=== PATIENT | female | born 2000 | race Caucasian/White ===

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

== ENCOUNTER 2022-06-25 09:29 | Inpatient (IN) ==
[2022-06-18 11:34] LABS: Basophils # 0.1 10*3/uL (0.0-0.2); Basophils % 0.6 % (0.0-0.8); Eosinophils # 0.1 10*3/uL (0.0-0.87); Eosinophils % 0.9 % (0.00-10.9); Hematocrit 39.6 VOL% (35.7-47.0); Hemoglobin 12.3 GM/DL (12.0-16.0); Immature Granulocytes % 0.2 %; Immature Granulocytes Absolute 0.02 #; Lymphocytes # 1.7 10*3/uL (1.4-4.0); Mean Corpuscular HGB Conc 31.1 GM/DL (32-36); Mean Corpuscular Volume 85.3 FL (87-102); Mean Platelet Volume 10.6 FL (9.6-12.0); Monocytes # 0.7 10*3/uL (0.11-0.8); Monocytes % 9.1 % (1.7-12.7); Neutrophils % 68.2 % (38.7-73.9); Platelet Count 260 T/CUMM (130-400); Red Blood Count 4.64 MC/CUMM (3.8-5.5); Red Cell Distribution Width 14.5 % (9.3-17.3)
[2022-06-18 11:44] LABS: Calcium 8.8 MG/DL (8.5-10.1); Osmolality,Calculated 274.5 MOS/KG (273-304); Potassium 3.9 MMOL/L (3.5-5.1)
[~2022-06-25 09:29] MED LIST: ALVIMOPAN 12 MG CAPSULE ONE; ALVIMOPAN 12 MG CAPSULE PO ONE; LACTATED RINGERS 1,000 ML IV SCH; cefTRIAXone 1,000 MG VIAL ONE; cefTRIAXone 1,000 MG in SODIUM CHLORIDE 0.9% 100 ML IV ONE
[2022-06-25] MEDS ORDERED: FAMOTIDINE 20 MG TABLET PO ONE (10:04)
[2022-06-25] MEDS ORDERED: DIAZEPAM 5 MG TABLET PO ONE (10:04)
[2022-06-25] MEDS ORDERED: propofoL 200 MG/20 ML VIAL IV ONE ×2 (10:06→12:30)
[2022-06-25] MEDS ORDERED: LIDOCAINE 2% 5 ML VIAL ONE (10:06)
[2022-06-25] MEDS ORDERED: ROCURONIUM 50 MG/5 ML VIAL IV ONE (10:06)
[2022-06-25] MEDS ORDERED: MIDAZOLAM 2 MG/2 ML VIAL ONE ×2 (10:07→13:18)
[2022-06-25] MEDS ORDERED: fentaNYL 100 MCG/2 ML VIAL ONE (10:07)
[2022-06-25] MEDS ORDERED: ALBUMIN 25% 25 GM/100 ML VIAL IV ONE (12:55)
[2022-06-25] MEDS ORDERED: KETAMINE 500 MG/10 ML VIAL ONE (13:22)
[2022-06-25] MEDS ORDERED: LACTATED RINGERS 1,000 ML IV ONE (13:27)
[2022-06-25] MEDS ORDERED: SEVOFLURANE 1 UNIT/15 MINUTE INH ONE (15:45)
[2022-06-25] MEDS ORDERED: ceFAZolin 1,000 MG VIAL ONE (15:45)
[2022-06-25] MEDS ORDERED: NEOSTIGMINE 10 MG/10 ML VIAL ONE (15:47)
[2022-06-25] MEDS ORDERED: GLYCOPYRROLATE 0.4 MG/2 ML VIAL ONE ×3 (15:47)
[2022-06-25] MEDS ORDERED: ONDANSETRON 4 MG/2 ML VIAL ONE (16:19)
[2022-06-25] MEDS ORDERED: HYDROmorphone 1 MG/1 ML SYRINGE ONE (16:31)
[2022-06-25] MEDS ORDERED: ACETAMINOPHEN INJ 1,000 MG/100 ML VIAL IV ONE (16:49)
[2022-06-25] MEDS ORDERED: METOCLOPRAMIDE 10 MG/2 ML VIAL ONE (16:54)
[2022-06-25] MEDS ORDERED: METOCLOPRAMIDE 10 MG/2 ML VIAL IV ONE (16:55)
[2022-06-25] MEDS: DEXTROSE 5% NACL 0.45% 1,000 ML IV SCH (18:17)
[2022-06-25] MEDS: HYDROmorphone 1 MG/1 ML SYRINGE IV PRN (21:28)
[2022-06-25] MEDS: ONDANSETRON 4 MG/2 ML VIAL IV PRN (23:06)
[2022-06-26] MEDS: DEXTROSE 5% NACL 0.45% 1,000 ML IV SCH (04:17)
[2022-06-26] MEDS: HYDROmorphone 1 MG/1 ML SYRINGE IV PRN (05:53)
[2022-06-26] MEDS: ONDANSETRON 4 MG/2 ML VIAL IV PRN (05:53)
[2022-06-26 06:01] LABS: Basophils # 0.1 10*3/uL (0.0-0.2); Basophils % 0.2 % (0.0-0.8); Hematocrit 37.5 VOL% (35.7-47.0); Hemoglobin 11.8 GM/DL (12.0-16.0); Immature Granulocytes % 1.7 %; Immature Granulocytes Absolute 0.35 #; Lymphocytes # 1.7 10*3/uL (1.4-4.0); Lymphocytes % 8.2 % (21.3-54.2); Mean Corpuscular HGB Conc 31.5 GM/DL (32-36); Mean Corpuscular Volume 86.6 FL (87-102); Mean Platelet Volume 10.3 FL (9.6-12.0); Monocytes # 1.2 10*3/uL (0.11-0.8); Monocytes % 5.5 % (1.7-12.7); Neutrophils % 84.4 % (38.7-73.9); Platelet Count 275 T/CUMM (130-400); Red Blood Count 4.33 MC/CUMM (3.8-5.5); Red Cell Distribution Width 14.1 % (9.3-17.3); White Blood Count 20.9 T/CUMM (4-12)
[2022-06-26 06:14] LABS: Calcium 8.7 MG/DL (8.5-10.1); Osmolality,Calculated 278.4 MOS/KG (273-304)
[2022-06-26 06:35] LABS: Lymphocytes 7 % (20-55); Platelet Estimate Adequate; Total Cells Counted 100
[2022-06-26 06:37] LABS: Hypochromia Slight; Microcytosis Slight
[2022-06-26 08:23] VITALS: BP 115/57
== END 2022-06-26 11:10 | disposition home or self-care (01) | DRG 661 ==
LOC: N.SDSINP 09:29 → N.3E 17:10
PROVIDERS: ADMIT Urology; ATTEND Urology